=== PATIENT | female | born 2005 | race Two or more races ===

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

== ENCOUNTER 2024-01-17 13:56 | Emergency (ER) | payer MEDICAID ==
[~2024-01-17] VITALS: Ht 172.7 cm; Wt 78.9 kg
[2024-01-17 14:59] LABS: Basophils # (auto) 0 10 ^3/uL (0-0.2); Basophils % (auto) 0.1 % (0.0-2.0); Eosinophils # (auto) 0.1 10 ^3/uL (0-0.8); Eosinophils % (auto) 0.9 % (0.0-7.0); Hematocrit 41.2 % (36.0-46.0); Lymphocytes # (auto) 0.8 10 ^3/uL (0.4-5.4); Lymphocytes % (auto) 5.9 % (10.0-50.0); Mean Corpuscular Hemoglobin 29.9 pg (28.0-32.0); Mean Corpuscular Hgb Conc. 33.9 g/dL (32.0-36.0); Mean Corpuscular Volume 88.3 fL (80.0-100.0); Monocytes # (auto) 0.5 10 ^3/uL (0-1.3); Monocytes % (auto) 3.5 % (0.0-12.0); Neutrophils # (auto) 12.8 10 ^3/uL (1.6-8.6); Neutrophils % (auto) 89.6 % (37.0-80.0); Red Blood Cells 4.67 10^6/uL (4.0-5.20); Red Cell Distribution Width 13.5 % (11.8-14.3); White Blood Cell 14.2 10^3/uL (4.4-10.8)
[2024-01-17 15:09] LABS: Calcium 9.8 mg/dL (8.7-10.4); Chloride 104 mmol/L (98-107); Sodium 138 mmol/L (136-145)
[2024-01-17 15:10] LABS: Anion Gap 7 (5-15); Carbon Dioxide 27 mmol/L (20-30)
[2024-01-17 15:15] LABS: BUN/Creatinine Ratio 15.9 (10.0-20.0); Blood Urea Nitrogen 13 mg/dL (9-23); Glucose 105 mg/dL (74-106); Lipase 43 U/L (12-53)
[2024-01-17 15:19] LABS: Urine Bacteria FEW /hpf (None Seen); Urine Blood Negative /uL (Negative); Urine Clarity Clear (Clear); Urine Color Light-Yellow (Yellow); Urine Protein, UAD Negative (Negative); Urine Urobilinogen Normal (Negative); Urine WBC 3 /hpf (0 - 5)
[2024-01-17] MEDS: KETOROLAC TROMETH 60MG/2ML VIAL IM ONE (15:26)
[2024-01-17] MEDS: ONDANSETRON HCL 4 MG/2 ML VIAL IM ONE (15:26)
[2024-01-17 15:27] VITALS: BP 102/57; PULSE 104; RESP 18; TEMP 98; O2SAT 96
[2024-01-17] MEDS ORDERED: ACET500T58 PO (16:11)
[2024-01-17] MEDS ORDERED: ZOFR4T PO (16:11)
== END 2024-01-17 16:33 | disposition home or self-care (01) ==
LOC: ER 13:56
DX: R10.9 Unspecified abdominal pain (principal); R11.0 Nausea; Z79.1 Long term (current) use of non-steroidal anti-inflammatories (NSAID); Z79.899 Other long term (current) drug therapy
CPT/HCPCS: 36415; 74176; 80048; 81001; 81025; 83690; 85025; 96372; 99285; J1885; J2405